=== PATIENT | male | born 1945 ===

== ENCOUNTER 2020-11-15 09:15 | Inpatient (IN) | payer OTHER ==
[~2020-11-15] VITALS: Ht 170.2 cm; Wt 114.3 kg
[2020-11-15] MEDS ORDERED: SIMVAST PO (14:05)
[2020-11-15] MEDS ORDERED: CARVEDILOL12.5 M1 PO (14:06)
[2020-11-15] MEDS ORDERED: ACID CONTROLLER20 MG PO (14:06)
[2020-11-15] MEDS ORDERED: COZAAR100 MG PO (14:06)
[2020-11-15] MEDS ORDERED: LASIX40 MG PO (14:07)
[2020-11-15] MEDS ORDERED: VERELAN180 MG PO (14:07)
[2020-11-15] MEDS ORDERED: ACID REDUCER20 M1 PO (14:08)
[2020-11-15] MEDS ORDERED: VASOTEC10 MG PO (14:08)
[2020-11-15] MEDS ORDERED: XARELTO20 M1 PO (14:09)
[2020-11-15] MEDS ORDERED: SYNTHROID50 MCG PO (14:09)
[2020-11-20] MEDS ORDERED: OMEPRAZOLE20 MG ×2 (08:31→08:32)
[2020-11-20] MEDS ORDERED: SIMVASTATIN20 MG (08:31)
[2020-11-20] MEDS ORDERED: BUMETANIDE1 MG (08:32)
[2020-11-22] MEDS ORDERED: GABAPENTIN300 MG PO (09:54)
[2020-11-22] MEDS ORDERED: INTESTINEX680 M1 PO (09:54)
== END 2020-11-22 11:13 | disposition home or self-care (01) | DRG 330 ==
LOC: SURH 11-19 07:00 → O/R 11-19 08:01 → SURH 11-19 08:01
PROVIDERS: ADMIT Surgery; ATTEND Surgery
PROC: 0DBN4ZZ Excision of Sigmoid Colon, Percutaneous Endoscopic Approach (ICD-10-PCS; 2020-11-19)
PROC: 07BC4ZX Excision of Pelvis Lymphatic, Percutaneous Endoscopic Approach, Diagnostic (ICD-10-PCS; 2020-11-19)
PROC: 0DJD8ZZ Inspection of Lower Intestinal Tract, Via Natural or Artificial Opening Endoscopic (ICD-10-PCS; 2020-11-19)
PROC: 0DTP4ZZ Resection of Rectum, Percutaneous Endoscopic Approach (ICD-10-PCS; principal; 2020-11-19 07:00)
DX: C19 Malignant neoplasm of rectosigmoid junction (principal); I48.20 Chronic atrial fibrillation, unspecified; I13.10 Hypertensive heart and chronic kidney disease without heart failure, with stage 1 through stage 4 chronic kidney disease, or unspecified chronic kidney disease; N18.2 Chronic kidney disease, stage 2 (mild); R59.0 Localized enlarged lymph nodes

== ENCOUNTER 2020-12-24 09:51 | Day surgery (SDC) | payer OTHER ==
[~2020-12-24 09:51] MED LIST: ACID CONTROLLER20 MG PO; ACID REDUCER20 M1 PO; BUMETANIDE1 MG; CARVEDILOL12.5 M1 PO; COZAAR100 MG PO; GABAPENTIN300 MG PO; INTESTINEX680 M1 PO; LASIX40 MG PO; OMEPRAZOLE20 MG; SIMVAST PO; SIMVASTATIN20 MG; SYNTHROID50 MCG PO; VASOTEC10 MG PO; VERELAN180 MG PO; XARELTO20 M1 PO
== END 2020-12-24 16:20 | disposition home or self-care (01) ==
LOC: CIR.AMB 09:51
PROVIDERS: ATTEND Surgery
DX: C18.7 Malignant neoplasm of sigmoid colon (principal)
CPT/HCPCS: 36561; C1751

== ENCOUNTER 2021-09-09 06:24 | Day surgery (SDC) | payer OTHER | END 2021-09-09 12:45 | disposition home or self-care (01) | LOC: AMB-ENDOS 06:24 | PROVIDERS: ATTEND Surgery | DX: D12.4 Benign neoplasm of descending colon (principal); Z85.038 Personal history of other malignant neoplasm of large intestine; Z20.822 Contact with and (suspected) exposure to COVID-19; K64.4 Residual hemorrhoidal skin tags ==

== ENCOUNTER 2023-05-20 05:13 | Day surgery (SDC) | payer OTHER ==
[2023-05-13 10:59] LABS: HEMATOCRIT 40.4 % (39.0-48.0); HEMOGLOBIN 13.6 g/dL (13-16.00); MEAN CELL VOLUME 91.3 fL (80.0-100.00); MEAN CORPUSCULAR HEMOGLOBIN 30.8 pg (27.00-32.0); MEAN CORPUSCULAR HGB CONC 33.7 g/dl (32.0-36.0); PLATELET COUNT 170 K/uL (150-450); RED BLOOD COUNT 4.42 M/uL (4.00-6.00); RED CELL DISTRIBUTION WIDTH 16.1 % (11.5-14.5)
[2023-05-13 11:07] LABS: URINE APPEARANCE Clear; URINE BILIRRUBIN Negative (NEGATIVE); URINE BLOOD Negative; URINE COLOR Yellow; URINE GLUCOSE Negative (NEGATIVE); URINE LEUKOCYTE Trace; URINE NITRATE Negative; URINE PROTEIN Negative (NEGATIVE); URINE UROBILINOGEN 0.2 E.U./dl
[2023-05-13 11:09] LABS: URINE RBC 2.2 uL (0.0-20.8); URINE WBC 4.6 uL (0.0-23.2)
[2023-05-13 11:23] LABS: URINE BACTERIA 1.2 uL (0.0-1933); URINE EPITHELIAL CELLS 1.2 uL (0.0-38.8)
[2023-05-13 11:27] LABS: ALBUMIN 3.9 gm/dL (3.4-5.0); BILIRUBIN TOTAL 0.81 mg/dL (0.3-1.2); CREATININE SERUM 0.94 mg/dL (0.70-1.30); GFR 77.42; GLOBULINA 3.1 G/DL (2.4-3.5); POTASSIUM 3.93 mEq/L (3.5-5.1)
[2023-05-13 11:50] LABS: INR 1.31; PROTHROMBIN TIME 13.5 SECONDS (9.0-11.5)
[~2023-05-20 05:13] MED LIST changes: +IRBESARTAN300 MG; +LEVOTHYROXINE25 MCG PO; +PEPCID AC20 MG; +TAMS0.4C; +ZOCOR20 MG PO
[2023-05-20] MEDS ORDERED: CEFAZOLIN SODIUM 1,000 MG VIAL ONE (05:57)
[2023-05-20] MEDS ORDERED: LIDOCAINE HCL 1%/Epi 20ML VIAL IJ ONE ×2 (06:55→08:00)
[2023-05-20] MEDS ORDERED: BUPIVACAINE HCL/PF 0.5% 30ML ML ONE (06:55)
[2023-05-20] MEDS ORDERED: BUPIVACAINE HCL 30 ML VIAL IJ ONE (08:00)
[2023-05-20] MEDS ORDERED: CEFAZOLIN SODIUM 1,000 MG VIAL IV ONE (08:00)
[2023-05-20] MEDS ORDERED: TRAM1TAB98 PO (10:34)
== END 2023-05-20 11:35 | disposition home or self-care (01) ==
LOC: CIR.AMB 05:13
PROVIDERS: ATTEND Surgery
DX: C18.9 Malignant neoplasm of colon, unspecified (principal)